=== PATIENT | male | born 1965 | race African-American/Black ===

== ENCOUNTER 2022-07-22 13:44 | Emergency (ER) | payer SELFPAY ==
[~2022-07-22] VITALS: Ht 177.8 cm; Wt 91.0 kg
[2022-07-22 13:47] VITALS: BP 183/100
== END 2022-07-22 15:34 | disposition left against medical advice (07) ==
LOC: ER 14:38
DX: R68.89 Other general symptoms and signs (principal); E78.00 Pure hypercholesterolemia, unspecified; I10 Essential (primary) hypertension
CPT/HCPCS: 99281